=== PATIENT | female | born 1985 | race Caucasian/White ===

== ENCOUNTER 2019-04-11 13:35 | Emergency (ER) | payer OTHER ==
[~2019-04-11] VITALS: Ht 157.5 cm; Wt 47.6 kg
[~2019-04-11 13:35] MED LIST: LEXAPRO20 MG; NORCO 5-325 TA1 EACH PO; PHENERGAN25 MG RE; TRILEPTAL; ZOFRAN ODT4 MG PO
[2019-04-11 14:06] LABS: URINE BILIRUBIN NEGATIVE (Negative); URINE BLOOD 3+ (Negative); URINE CLARITY CLEAR; URINE COLOR YELLOW; URINE GLUCOSE-RANDOM NEGATIVE (Negative); URINE KETONES TRACE (Negative); URINE LEUKOCYTES-REFLEX 1+ (Negative); URINE NITRITE-REFLEX POSITIVE (Negative); URINE PROTEIN 2+ (Negative); URINE SPECIFIC GRAVITY >= 1.030 (1.005-1.030); URINE UROBILINOGEN 0.2 E.U./dl (0.2-1.0)
[2019-04-11 14:08] VITALS: BP 145/79
[2019-04-11] MEDS ORDERED: ACETAMINOPHEN-1 EAC1 PO (14:11)
[2019-04-11] MEDS ORDERED: BACTRIM DS TAB1 EACH PO (14:11)
[2019-04-11] MEDS ORDERED: PYRIDIUM100 M1 PO (14:11)
[2019-04-11 14:15] LABS: CASTS None Seen /LPF (None Seen); CRYSTALS None Seen /LPF (None Seen); MUCUS 0-3 Light strn/LPF (None Seen); SQUAMOUS 0-3 Few /LPF (0-3); URINE RBC >20 Many /HPF (0-2)
== END 2019-04-11 14:08 | disposition home or self-care (01) ==
LOC: M.ERS 13:35
PROVIDERS: Physician Assistant
DX: N39.0 Urinary tract infection, site not specified (principal); F32.9 Major depressive disorder, single episode, unspecified; F17.210 Nicotine dependence, cigarettes, uncomplicated; Z98.890 Other specified postprocedural states

== ENCOUNTER 2019-06-13 10:37 | Emergency (ER) | payer OTHER ==
[~2019-06-13] VITALS: Ht 157.5 cm; Wt 49.9 kg
[~2019-06-13 10:37] MED LIST changes: +ACETAMINOPHEN-1 EAC1 PO; +BACTRIM DS TAB1 EACH PO; +PYRIDIUM100 M1 PO
[2019-06-13 10:48] VITALS: BP 123/86
== END 2019-06-13 11:03 | disposition home or self-care (01) ==
LOC: M.ERS 10:37
DX: K42.9 Umbilical hernia without obstruction or gangrene (principal); F32.9 Major depressive disorder, single episode, unspecified; F17.210 Nicotine dependence, cigarettes, uncomplicated; Z98.890 Other specified postprocedural states

== ENCOUNTER 2020-10-22 14:52 | Emergency (ER) | payer OTHER ==
[~2020-10-22] VITALS: Ht 157.5 cm; Wt 49.9 kg
[2020-10-22 15:30] LABS: URINE BLOOD 3+ (Negative); URINE CLARITY TURBID; URINE COLOR RED; URINE GLUCOSE-RANDOM NEGATIVE (Negative); URINE KETONES TRACE (Negative); URINE LEUKOCYTES-REFLEX NEGATIVE (Negative); URINE NITRITE-REFLEX NEGATIVE (Negative); URINE PROTEIN 3+ (Negative); URINE SPECIFIC GRAVITY >= 1.030 (1.005-1.030); URINE UROBILINOGEN 0.2 E.U./dl (0.2-1.0)
[2020-10-22 15:38] LABS: URINE BILIRUBIN 1+ (Negative)
[2020-10-22 15:40] LABS: ICTOTEST (BILI CONFIRMATORY) Negative (Negative)
[2020-10-22 15:45] LABS: SQUAMOUS 0-3 Few /LPF (0-3)
[2020-10-22 15:46] LABS: BACTERIA-REFLEX >30 Many /HPF (None Seen); CASTS None Seen /LPF (None Seen); CRYSTALS None Seen /LPF (None Seen); MUCUS >6 Heavy strn/LPF (None Seen); URINE RBC >20 Many /HPF (0-2); URINE WBC-REFLEX 0-5 Rare /HPF (0-5)
[2020-10-22 15:52] LABS: ABSOLUTE BASOPHILS 0.1 thou/uL (0.0-0.2); ABSOLUTE LYMPHOCYTES 1.8 thou/uL (0.8-5.3); ABSOLUTE MONOCYTES 0.8 thou/uL (0.0-1.2); ABSOLUTE NEUTROPHILS 5.8 thou/uL (1.6-8.1); EOSINOPHILS 0.2 %; HEMATOCRIT 41.6 % (37.0-47.0); HEMOGLOBIN 13.9 gm/dL (12.0-15.0); MCH 26.9 pg (26.0-34.0); MCHC 33.3 g/dL (28.0-37.0); MCV 80.7 fL (80.0-100.0); MPV 7.2 fl. (7.2-11.1); NUCLEATED RBCS 0 /100WBC; PLATELET COUNT* 326 thou/uL (150-400); POLYS 68.8 %; RBC 5.15 mil/uL (4.20-5.00); RDW-CV 13.9 % (10.5-14.5); WBC 8.4 thou/uL (4.0-11.0)
[2020-10-22 16:09] LABS: CREATININE 0.8 mg/dL (0.6-1.3); POTASSIUM 3.5 mmol/L (3.5-5.1)
[2020-10-22 16:13] LABS: ALBUMIN 4.4 g/dL (3.4-5.0); TOTAL BILIRUBIN 0.7 mg/dL (<0.1-1.0); TOTAL PROTEIN 7.6 g/dL (6.4-8.2)
[2020-10-22 17:50] LABS: ABSOLUTE BASOPHILS 0.1 thou/uL (0.0-0.2); ABSOLUTE MONOCYTES 0.7 thou/uL (0.0-1.2); ABSOLUTE NEUTROPHILS 5.3 thou/uL (1.6-8.1); BASOPHILS 0.6 %; EOSINOPHILS 0.6 %; HEMATOCRIT 35.6 % (37.0-47.0); LYMPHOCYTES 24.4 %; MCHC 33.2 g/dL (28.0-37.0); MCV 81.3 fL (80.0-100.0); MONOCYTES 9.2 %; NUCLEATED RBCS 0 /100WBC; PLATELET COUNT* 277 thou/uL (150-400); POLYS 65.2 %; RBC 4.38 mil/uL (4.20-5.00); RDW-CV 13.9 % (10.5-14.5); WBC 8.1 thou/uL (4.0-11.0)
[2020-10-22 17:51] LABS: HEMOGLOBIN 11.8 gm/dL (12.0-15.0)
[2020-10-22] MEDS ORDERED: MEDROXYPROGESTE10 MG PO (18:17)
[2020-10-22] MEDS ORDERED: KEFLEX500 M1 PO (18:17)
[2020-10-22] MEDS ORDERED: BENTYL 10 MG CA10 M1 PO (18:18)
[2020-10-22 18:38] VITALS: BP 128/80
--- NOTE | 2020-10-23 15:57 | EKG ---
[place] [address] ELECTROCARDIOGRAM REPORT Name: ROBERT SALDAÑA Room: [facility]#: [id number] Admission: 10/22/20 Attend Phys: Discharge: 10/22/20 Date of : 83 Date of Service: 10/22/20 1550 Report #: [id number] THIS REPORT FOR: //name// [facility] ED Test Date: 2020-10-22 Test Time: 15:50:25 Pat Name: ROBERT SALDAÑA Department: Room: Gender: Resident Care Manager Rn: PETAR : 1985 Requested By: Ofelia Ford Order Number: [id number] MD: Spike Powell Measurements Intervals [place] Rate: 84 P: -53 VA: 104 QRS: 76 QRSD: 88 T: -8 QT: 368 QTc: 436 Interpretive Statements Sinus or ectopic atrial rhythm Short VA interval Minimal ST depression, inferior leads Compared to ECG 08/21/2011 18:05:17 Ectopic atrial rhythm now present Short VA interval now present ST (T wave) deviation still present Electronically Signed On 10-23-2020 15:57:37 MACHINE INSTALLER by Spike Powell [email or web address] <ELECTRONICALLY SIGNED> By: Spike Powell MD, FACC 10/23/20 1557 1550 1550 Spike Powell MD, FAC /EPI
== END 2020-10-22 18:45 | disposition home or self-care (01) ==
LOC: M.ERS 14:52
PROVIDERS: Nurse Practitioner Family
DX: N93.9 Abnormal uterine and vaginal bleeding, unspecified (principal); N39.0 Urinary tract infection, site not specified; F17.210 Nicotine dependence, cigarettes, uncomplicated